=== PATIENT | female | born 1985 | race American Indian/Alaskan Native ===

== ENCOUNTER 2016-12-12 06:39 | Inpatient (IN) | payer MEDICAID ==
[2016-12-12] MEDS ORDERED: SUBLIMAZE IV PRN (07:43)
[2016-12-12] MEDS ORDERED: POLYCILLIN/NS 2 GM/100 ML 2 GM/100 ML BAG IV ONE (08:00)
[2016-12-12] MEDS ORDERED: LACTATED RINGERS 1,000 ML IV SCH (08:00)
[2016-12-12 08:44] LABS: Basophils % (Auto) 0.8 % (0.0-1.8); Eosinophils % (Auto) 0.6 % (0.0-4.3); Hematocrit 39.1 % (30.3-42.9); Hemoglobin 12.5 gm/dl (10.1-14.3); Mean Corpuscular HGB Conc 32 % (30-34); Mean Corpuscular Hemoglobin 27 pg (28-32); Mean Corpuscular Volume 85 fl (79-97); Platelet Count 332 K/mm3 (140-440); Red Blood Count 4.61 M/mm3 (3.65-5.03); Red Cell Distribution Width 14.2 % (13.2-15.2); White Blood Count 12.2 K/mm3 (4.5-11.0)
[2016-12-12] MEDS ORDERED: PITOCin/NS 30 UNIT/500ML 30,000 MILLIUNITS/500 ML BAG IV ONE (09:17)
[2016-12-12] MEDS ORDERED: PITOCin/NS 20 UNIT/1000ML DRIP 20 UNITS/1,000 ML BAG IV SCH (10:00)
--- NOTE | 2016-12-12 10:23 | History and Physical Report ---
History of Present Illness Date of examination: 12/12/16 Date of admission: 12/12/16 08:03 History of present illness: 31 yo LMP EDC 12/14/16 @ 39.5 weeks gestation presented to triage this am for painful contractions that started at 1am. On exam was noted to be 4cm dilated with minimal variability. OB transfer into at 23 weeks gestation. course complicated by glucose intolerance with NL 3hr GTT. She is GBS negative. Past History Past Medical History: no pertinent history Past Surgical History: no surgical history Family/Genetic History: diabetes, hypertension Social history: no significant social history, - Obstetrical History Expected Date of Delivery: 12/14/16 Actual Gestation: 39 Week(s) 5 Day(s) : 3 Para: 2 (2011 M 40 wks 7-7oz, 2015 F 40 wks 7-8oz) Hx # Term Pregnancies: 2 Number of Pregnancies: 0 Spontaneous Abortions: 0 Number of Living Children: 2 Medications and Allergies Allergies Allergy/AdvReac Type Severity Reaction Status Date / Time No Known Allergies Allergy Verified 03/23/15 18:13 Home Medications Medication Instructions Recorded Confirmed Last Taken Type Acetaminophen [Tylenol] 500 mg PO Q6HR PRN 03/23/15 03/23/15 03/22/15 21:00 History 1 Ferrous Sulfate [Ferrous Sulfate] 1 tab PO DAILY 03/23/15 03/23/15 03/23/15 16: 30 History 1 Pnv with Ca,No.72/Iron/FA [Pnv 1 tab PO DAILY 03/23/15 03/23/15 03/23/15 16:30 History Plus Multivit Tab] 1 Active Meds: Active Medications Fentanyl (Sublimaze) 100 mcg IV Q2H PRN PRN Reason: Labor Pain Lactated Ringer's (Lactated Ringers) 1,000 mls @ 125 mls/hr IV DIRECT JACK Oxytocin/Sodium Chloride (Pitocin/Ns 20 Unit/1000ml Drip) 20 units in 1,000 mls @ 0 mls/hr IV DIRECT JACK PRN Reason: As Directed Oxytocin/Sodium Chloride (Pitocin/Ns 30 Unit/500ml) 30,000 milliunits in 500 mls @ 2 mls/hr IV DIRECT ONE; 2 MILLIUNITS/MIN PRN Reason: Protocol Stop: 12/22/16 19:16 Review of Systems Genitourinary: normal appearance, contractions (irreg), no vaginal bleeding - Vital Signs Vital signs: Vital Signs Pulse BP 65 103/65 12/12/16 07:18 12/12/16 07:18 Temp Pulse Resp BP Pulse Ox 98.4 F 64 18 115/69 12/12/16 08:00 12/12/16 09:46 12/12/16 08:00 12/12/16 09:46 - Physical Exam Breasts: Positive: normal Lungs: Positive: Normal air movement Abdomen: Positive: normal appearance Genitourinary (Female): Positive: normal external genitalia, normal perenium - Obstetrical FHR: category 1 FHR comments: periods of minimal variability Uterine Contraction Monitor Mode: External Cervical Dilatation: 4 Cervical Effacement Percentage: 80 station: -2 Uterine Contraction Frequency (min): irreg Uterine Contraction Pattern: Irregular Uterine Tone Measurement Phase: Resting Uterine Contraction Intensity: Moderate Results Result Diagrams: 12/12/16 08:08 Abnormal lab results 12/12/16 Range/Units 08:08 WBC 12.2 H (4.5-11.0) K/mm3 MCH 27 L (28-32) pg [place] % (Auto) 10.1 H (0.0-7.3) % [place] # 1.2 H (0.0-0.8) K/mm3 All other labs normal. Assessment and Plan A: IUP at 39.5 weeks gestation Active Labor P: AROM-clear fluid Anticipate
[2016-12-12] MEDS ORDERED: ZOFRAN ONE (12:02)
[2016-12-12] MEDS ORDERED: ZOFRAN IV PRN (12:04)
--- NOTE | 2016-12-12 13:06 | Procedure Note ---
OB Delivery Note - Delivery Date of Delivery: 12/12/16 (7-11oz female @ 1226) Surgeon: FRAN NEWBERRY Estimated blood loss: <100cc - Vaginal Delivery presentation: vertex Delivery position: OA Intrapartum events: none Delivery induction: AROM Delivery augmentation: pitocin Delivery monitor: external FHT, external uterine Route of delivery: Delivery placenta: spontaneous Delivery cord: 3 umbilical vessels Delivery laceration: none Anesthesia: none - Infant A at 1 minute: 9 at 5 minutes: 9 Infant Gender: Female (Progressed rapidly to C/C, pushing with urge. viable female, spont. cry, bulb suctioned and placed skin to skin. Cord blood collected. spont. placenta, minimal bleeding. IV dislodged with pushing. New IV started with Pitocin infusing. No lacerations noted.)
[2016-12-12] MEDS: MOTRIN PO PRN ×3 (13:28→23:56)
[2016-12-12] MEDS: NORCO 5/325 PO PRN ×2 (13:28→18:23)
[2016-12-12] MEDS ORDERED: PHENERGAN PR PRN (13:39)
[2016-12-12] MEDS ORDERED: TYLENOL PO PRN (13:39)
[2016-12-12] MEDS ORDERED: DULCOLAX PR PRN (13:39)
[2016-12-12] MEDS ORDERED: BENADRYL PO PRN (13:39)
[2016-12-12] MEDS ORDERED: PHENERGAN PO PRN (13:39)
[2016-12-12] MEDS ORDERED: TUCKS PAD TP PRN (13:39)
[2016-12-12] MEDS ORDERED: LANSINOH TP PRN (13:39)
[2016-12-12] MEDS ORDERED: MILK OF MAGNESIA PO PRN (13:39)
[2016-12-12] MEDS ORDERED: SODIUM CHLORIDE FLUSH SYRINGE 10 ML IV NR (14:00)
[2016-12-13 02:41] LABS: Hematocrit 34.3 % (30.3-42.9); Hemoglobin 11.3 gm/dl (10.1-14.3)
[2016-12-13] MEDS: MOTRIN PO PRN ×3 (05:09→21:21)
[2016-12-13] MEDS ORDERED: PRENATAL VITAMIN PO SCH (10:00)
--- NOTE | 2016-12-13 14:15 | Progress Note ---
Assessment and Plan O; VSS AF PP H/H: 11.3/34.3 A: Stable PP Day 1 P: D/C in am Subjective - Subjective Date of service: 12/13/16 Interval history: 31 yo LMP EDC 12/14/16 @ 39.5 weeks gestation presented to triage this am for painful contractions that started at 1am. On exam was noted to be 4cm dilated with minimal variability. OB transfer into at 23 weeks gestation. course complicated by glucose intolerance with NL 3hr GTT. She is GBS negative. Patient reports: appetite normal, voiding normally, pain well controlled, flatus , ambulating normally : doing well, nursing well Objective - Vital Signs Latest vital signs: Vital Signs Temp Pulse Resp BP Pulse Ox 12/13/16 08:40 98.2 F 71 20 105/51 12/13/16 00:40 97.9 F 68 18 116/72 12/12/16 20:35 97.8 F 61 18 110/55 12/12/16 17:14 97.9 F 58 L 18 125/68 98 Intake and Output 12/12/16 12/13/16 12/13/16 22:59 06:59 14:59 Intake Total 720 120 240 Output Total 650 900 Balance 70 120 -660 Intake: Oral 240 120 240 Intake, Free Water 480 Output: Urine 650 900 Void 650 900 Other: Total, Intake Amount 240 120 240 Total, Output Amount 650 900 - Exam Breasts: Present: normal Lungs: Present: Normal air movement Abdomen: Present: normal appearance, soft, normal bowel sounds. Absent: distention, tenderness Uterus: Present: normal, firm, fundal height below umbilicus. Absent: bogginess , tenderness Extremities: Present: normal
--- NOTE | 2016-12-13 14:18 | Discharge Summary ---
Providers - Providers Date of Admission: 12/12/16 08:03 Date of discharge: 12/14/16 Attending physician: EVY ROSE Primary care physician: EVY ROSE Hospitalization Reason for admission: active labor, IUP at term Delivery: Episiotomy: none Laceration: none Other procedures: none complications: none Discharge diagnosis: IUP at term delivered baby: female Condition at discharge: Good Disposition: DC-01 TO HOME OR SELFCARE Plan - Discharge Medications Prescriptions: Ibuprofen [Motrin 600 MG tab] 600 mg PO Q6H PRN #30 tablet PRN Reason: Pain, Mild (1-3) - Provider Discharge Summary Activity: routine, no sex for 6 weeks, no heavy lifting 4 weeks Diet: routine Additional instructions: [] Smoking cessation referral if applicable(refer to patient education folder for contact #) [] Refer to [facility] Booklet Call your doctor immediately for: * Fever > 100.5 * Heavy vaginal bleeding ( >1 pad per hour) * Severe persistent headache * Shortness of breath * Reddened, hot, painful area to leg or breast * Drainage or odor from incision. * Keep incision clean and dry at all times and follow doctor's instructions regarding bathing/showering - Follow up plan Follow up: EVY ROSE MD [Primary Care Provider] - FRAN NEWBERRY CNM [Advanced Practice Nurse] - (RTO 4 weeks )
[2016-12-14] MEDS: NORCO 5/325 PO PRN (03:55)
[2016-12-14] MEDS ORDERED: BOOSTRIX IM ONE (06:00)
[2016-12-14 09:28] VITALS: BP 104/70
== END 2016-12-14 15:15 | disposition home or self-care (01) | DRG 775 ==
LOC: TRG 06:39 → LD 08:03 → OB 14:00
PROVIDERS: ADMIT Obstetrics & Gynecology; ATTEND Obstetrics & Gynecology
PROC: 10E0XZZ Delivery of Products of Conception, External Approach (ICD-10-PCS; principal; 2016-12-12)
PROC: 10907ZC Drainage of Amniotic Fluid, Therapeutic from Products of Conception, Via Natural or Artificial Opening (ICD-10-PCS; 2016-12-12)
PROC: 3E0234Z Introduction of Serum, Toxoid and Vaccine into Muscle, Percutaneous Approach (ICD-10-PCS; 2016-12-12)
DX: O99.814 Abnormal glucose complicating childbirth (principal); Z37.0 Single live birth; Z3A.39 39 weeks gestation of pregnancy; Z23 Encounter for immunization
CPT/HCPCS: 36415; 85014; 85018; 85025; 86592; 86850; 86900; 86901; 90471; 90715; 99211; G0463; J0290; J2405; J2590; J3010; J7120